=== PATIENT | male | born 1950 | race Caucasian/White ===

== ENCOUNTER 2024-12-16 10:10 | Outpatient (REF) | payer MEDICARE, SELFPAY ==
[2024-12-16 15:57] LABS: HCT 48.4 % (40.0-50.0); HGB 16.5 g/dL (13.5-17.5); MCH 31.3 pg (27.0-33.0); MCHC 34.1 % (32.0-36.0); MCV 92 fL (80-95); MPV 9.3 fL (8.0-11.0); Platelet Count 236 10^3/uL (130-400); RBC 5.27 10^6/uL (4.36-5.78); RDW 13.1 % (11.8-14.1); RDW-SD 44.1 fL; WBC 5.00 10^3/uL (4.4-10.8)
[2024-12-16 16:19] LABS: ALT 42 U/L (16-63); AST 30 U/L (15-37); Albumin 4.2 g/dL (3.4-5.0); Alkaline Phosphatase 60 U/L (46-116); Anion Gap 8.0 mmol/L (3-11); BUN 15 mg/dL (7-18); Bilirubin, Total 1.4 mg/dL (0.2-1.0); CO2 29.0 mmol/L (21.0-32.0); Calcium 8.8 mg/dL (8.5-10.1); Calculated LDL 94 mg/dL (<100); Chloride 102 mmol/L (98-107); Cholesterol 164 mg/dL (<200); Estimated GFR 78.49 (mL/min/1.73m2); Glucose 147 mg/dL (74-106); HDL Cholesterol 48 mg/dL (>or=40); Magnesium 1.9 mg/dL (1.8-2.4); Potassium 4.0 mmol/L (3.5-5.1); Sodium 139 mmol/L (136-145); Total Protein 7.9 g/dL (6.4-8.2); Triglyceride 111 mg/dL (<150)
[2024-12-16 16:26] LABS: Hemoglobin A1C 7.0 % (<5.7)
[2024-12-17 17:40] LABS: PSA, Screening 1.3 ng/mL (<=6.5)
== END 2024-12-16 10:11 | disposition home or self-care (01) ==
LOC: NCHCN 10:10
PROVIDERS: PCP Physician Assistant; Visit Provider Physician Assistant
DX: E78.49 Other hyperlipidemia (principal); E11.9 Type 2 diabetes mellitus without complications; G62.9 Polyneuropathy, unspecified; N40.0 Benign prostatic hyperplasia without lower urinary tract symptoms
CPT/HCPCS: 80053; 80061; 84153; 85027; 83036; 83735

== ENCOUNTER 2024-12-23 16:01 | Outpatient (REF) | payer MEDICARE, SELFPAY ==
[2024-12-23 17:14] LABS: COMMENT (LAB VIEW ONLY) 51.48 mg/dL; Microalb ug/mg Crea 5.8 ug/mg Cr
== END 2024-12-23 16:02 | disposition home or self-care (01) ==
LOC: NCHCN 16:01
PROVIDERS: PCP Physician Assistant; Visit Provider Physician Assistant
DX: E11.9 Type 2 diabetes mellitus without complications (principal)
CPT/HCPCS: 82043; 82570